=== PATIENT | female | born 1945 | race Caucasian/White ===

== ENCOUNTER 2022-05-02 11:32 | Outpatient (CLI) | payer MEDICARE, OTHER, SELFPAY ==
[2022-05-02 15:04] LABS: Chloride* 104 mmol/L (96-114); Potassium* 4.4 mmol/L (3.6-5.1); Sodium* 138 mmol/L (135-149)
[2022-05-02 15:07] LABS: Blood Urea Nitrogen* 14 mg/dL (7-30); Carbon Dioxide* 27 mmol/L (20-32); Cholesterol* 159 mg/dL (90-199); Creatinine* 0.6 mg/dL (0.5-1.5); Estimated Glomerular Filt Rate 94 ml/min; Glucose* 105 mg/dL (60-115)
[2022-05-02 15:08] LABS: Calcium* 9.4 mg/dL (8.4-10.6); HDL Cholesterol* 65 mg/dL (>=50); LDL Cholesterol Calculated 77 mg/dL (<100); Triglycerides* 86 mg/dL (40-149)
== END 2022-05-02 11:33 | disposition home or self-care (01) ==
LOC: NFLDREF 11:33
PROVIDERS: PCP Internal Medicine; Visit Provider Internal Medicine
DX: Z00.00 Encounter for general adult medical examination without abnormal findings (principal); E78.5 Hyperlipidemia, unspecified; Z13.9 Encounter for screening, unspecified
CPT/HCPCS: 80048; 80061

== ENCOUNTER 2023-06-05 10:49 | Outpatient (CLI) | payer MEDICARE, OTHER, SELFPAY ==
--- OUTSIDE RECORDS SUMMARY | 2023-06-12 10:29 | XMS_ITS | Continuity of Care Document ---
Author Name Unknown Organization [facility] Address [address] [place] [address] Phone Care Team Providers Care Dining Service Supervisor Name Role Phone Viri Carl MD Unavailable Unavailable Advance Directives Directive Yes / No Effective Date File Name No Information Encounters Encounter Description Practice Location Reason(s) For Visit Diagnoses Date Provider Providers Copied on Encounter [facility], [address], [place], [address], [place] tel:[phone] [facility], No Information 1 Siddhartha Meredith. [facility] [address], [place], [address], [place]. tel:[phone] Family History Family Member Type Diagnosis Age At Onset No Information Payers Payer name Insurance type Covered republican ID Authoriza tion(s) No Information Social History Type Description Quantity Date Captured Comments Sex Female Smoking Status No Information Chief Complaint And Reason For Visit No Information Reason For Referral Reason For Referral No Information History Of Present Illness Encounter Date Complaint History Of Prese nt Illness No Information Functional Status Date Functional Assessmen t No Information Instructions Date Instruction Additional Infor mation No Information Assessments Type Assessment Date No Information Patient Care Teams Name Effective Dates (start - stop) Status Members No Information
== END 2023-06-05 10:50 | disposition home or self-care (01) ==
LOC: NFLDREF 06-12 10:27
PROVIDERS: PCP Internal Medicine; Referring Provider Internal Medicine; Visit Provider Internal Medicine
DX: E78.5 Hyperlipidemia, unspecified (principal); Z13.1 Encounter for screening for diabetes mellitus
CPT/HCPCS: 80061; 82947

== ENCOUNTER 2024-05-20 10:56 | Outpatient (CLI) | payer MEDICARE, OTHER, SELFPAY ==
--- OUTSIDE RECORDS SUMMARY | 2024-05-24 12:26 | XMS_ITS | Encounter Summary ---
Author Organization [facility] Address [address] [place] [address] Care Team Providers Care Print Developer Automatic Name Role Phone Quintin Ferguson M.D. Primary Care Provider [phone] Reason for Referral * Outpatient (Routine) - Closed Specialty Diagnoses / Procedures Referred By Marianela villaseñor Referred To Contact Diagnoses Screening Mammogram Breast Cancer Procedures BI Breast Screening Bilateral with Tomosynthesis Quintin Ferguson M.D. [address] [place] [address] Phone: tel: fax: [facility] Referral ID Status Reason Start Date Expiration Date Visits Re quested Visits Authorized [id number] Closed 03/14/2024 03/14/2025 1 1 Reason for Visit * Outpatient (Routine) - Closed Specialty Diagnoses / Procedures Referred By Marianela villaseñor Referred To Contact Diagnoses Screening Mammogram Breast Cancer Procedures BI Breast Screening Bilateral with Tomosynthesis Quintin Ferguson M.D. [address] [place] [address] Phone: tel: fax: [facility] Referral ID Status Reason Start Date Expiration Date Visits Re quested Visits Authorized [id number] Closed 03/14/2024 03/14/2025 1 1 Encounter Details Date Type Department Care Team (Latest Contact Info) Description 04/04/2024 1:30 PM CDT - 04/04/2024 11:59 PM CDT Hospital Encounter Department of Radiology in [place], [place] [address] [facility] [address] Quintin Ferguson M.D. [address] [place] [address] Screening Mammogram Breast Cancer Discharge Disposition: Home or Self Care Social History Tobacco Use Types Packs/Day Years Used Date Smoking Tobacco: Never Smokeless Tobacco: Never Alcohol Use Standard Drinks/Week Comments No 0 (1 standard drink = 0.6 oz pur e alcohol) PHQ-2 Answer Date Recorded PHQ-2 Score 0 09/02/2019 Nutrition Answer Date Recorded Nutrition: EVOO Fat Source Unknown 09/13 Nutrition: Servings of Fruits/Vegetables per Day Not on file 09/13/2020 Dental Answer Date Recorded Dental: Regular Dentist Unknown 09/13/19 21 Comments No Sex and Gender Information Value Date Recorded Sex Assigned at Not on file 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 Do not exceed 4000 mg or 4 g in 24 hours.). 30 tablet 01/27/2020 atorvastatin (LIPITOR) 10 mg tablet TAKE 1 TABLET BY MOUTH DAILY 90 tablet 3 11/26/2021 coenzyme Q10 (CO Q-10) 200 mg capsule Take 200 mg by mouth daily. diclofenac sodium (VOLTAREN) 1 % gel Apply 2 g topically 2 (two) times a day as needed (knee pain). 11/15/2019 DOCOSAHEXANOIC ACID/EPA (FISH OIL ORAL) Take 1 capsule by mouth daily. 10/12/2009 ERGOCALCIFEROL, VITAMIN D2, ORAL Take 1 tablet by mouth daily. 10/12/2009 latanoprost (XALATAN) 0.005 % ophthalmic solution Administer 1 drop into both eyes at bedtime. 12/17/2021 naproxen sodium (ALEVE/ANAPROX) 220 mg tablet Take 220 mg by mouth 2 (two) times a day with meals. UNABLE TO FIND Take 2 capsules by mouth 3 (three) times a day. Fruits and veggies capsule. 06/09/2023 UNABLE TO FIND Take by mouth daily. Prevagen 06/09/2023 vitamin E 45 mg (100 Unit) capsule Take 45 mg by mouth daily. wheat dextrin (BENEFIBER HEALTHY SHAPE ORAL) Take by mouth. 3 times daily documented as of this encounter Plan of Treatment Not on file documented as of this encounter Procedures Procedure Name Priority Date/Time Associated Diagnosis Comments BI BREAST SCREENING BILATERAL WITH TOMOSYNTHESIS RAD - Routine (most inpatients and all outpatients) 04/04/2024 1:45 PM CDT Screening Mammogram Breast Cancer documented in this encounter Results * BI Breast Screening Bilateral with Tomosynthesis (04/04/2024 1:45 PM CDT) Anatomical Region Laterality Modality Breast, Breast Imaging RST L OS, Breast Imaging ARZ LOS, Breast Imaging FLA LOS Bilateral Mammography Impressions 04/04/2024 2:36 PM CDT Negative. RECOMMENDATION: ??Annual Screening Mammogram ASSESSMENT: ??BI-RADS: 1: Negative. Narrative 04/04/2024 2:36 PM CDT EXAM: ??BI BREAST SCREENING BILATERAL WITH TOMOSYNTHESIS Current study was evaluated with a Computer Aided Detection (CAD) system. INDICATION: ??Screening mammogram. COMPARISON: ??Prior exam(s) were available and reviewed for comparison. DENSITY: ??c. The breast(s) are heterogeneously dense, which may obscure small masses. FINDINGS: ??No mammographic findings of malignancy. Procedure Note Bruce Fernández M.D. - 04/04/2024 EXAM: BI BREAST SCREENING BILATERAL WITH TOMOSYNTHESIS Current study was evaluated with a Computer Aided Detection (CAD) system. INDICATION: Screening mammogram. COMPARISON: Prior exam(s) were available and reviewed for comparison. DENSITY: c. The breast(s) are heterogeneously dense, which may obscuresmall masses. FINDINGS: No mammographic findings of malignancy. IMPRESSION: Negative. RECOMMENDATION: Annual Screening Mammogram ASSESSMENT: BI-RADS: 1: Negative. us Quintin Ferguson M.D. IMG BI PROCEDURES Final Resu lt documented in this encounter Visit Diagnoses Diagnosis Screening Mammogram Breast Cancer documented in this encounter Care Teams Print Developer Automatic Relationship Specialty Start Date End Date Quintin Ferguson M.D. [address] [place] [phone] PCP - General 08/30/20 documented as of this encounter
--- OUTSIDE RECORDS SUMMARY | 2024-05-24 12:26 | XMS_ITS | Encounter Summary ---
Author Organization [facility] Address [address] [place] [address] Care Team Providers Care Recreation Facility Manager Name Role Phone Quintin Ferguson M.D. Primary Care Provider [phone] Reason for Referral * Outpatient (Routine) - Authorized Specialty Diagnoses / Procedures Referred By Contac t Referred To Contact Quintin Ferguson M.D. [address] [place] [address] Phone: tel: fax: [facility] Region Referral ID Status Reason Start Date Expiration Date V isits Requested Visits Authorized [id number] Authorized 05/24/2024 11/23/2025 1 1 Scheduling Instructions Nurse AWV Do not schedule prior to due date to ensure insurance coverage Visit: Medicare Annual Wellness due on 06/05/2024. OFF MAN Encounter Details Date Type Department Care Team (Late st Contact Info) Description 05/24/2024 Orders Only [facility] PCP [facility] MNT Quintin Ferguson M.D. 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 [address] [place] [phone] PCP - General 08/30/20 documented as of this encounter
--- OUTSIDE RECORDS SUMMARY | 2024-05-24 12:26 | XMS_ITS | Encounter Summary ---
Author Organization [facility] Address [address] [place] [address] Care Team Providers Care Full Stack Java Developer Name Role Phone Quintin Ferguson M.D. Primary Care Provider Encounter Details Date Type Department Care Team (Late st Contact Info) Description 04/04/2024 Clinical Communication Department of Family Medicine, [facility], in [place], [place] [address] [place] [address] Quintin Ferguson M.D. 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 - 04/04/2024 3:39 PM CDT 2nd letter mailed to patient to call and schedule colonoscopy documented in this encounter Plan of Treatment Not on file documented as of this encounter Visit Diagnoses Not on filedocumented in this encounter Care Teams Full Stack Java Developer Relationship Specialty Start Date End Date Quintin Ferguson M.D. [address] [place] [address] [place] [address] PCP - General 08/30/20 documented as of this encounter
--- OUTSIDE RECORDS SUMMARY | 2024-05-24 12:26 | XMS_ITS | Encounter Summary ---
Author Organization [facility] Address [address] [place] [address] Care Team Providers Care Corporate Compliance Officer Name Role Phone Quintin Ferguson M.D. Primary Care Provider Reason for Visit * Reason Onset Date Comments Colonoscopy 02/15/2024 Encounter Details Date Type Department Care Team (Late st Contact Info) Description 02/15/2024 Clinical Communication Department of Family Medicine, [facility], in [place], [place] [address] [place] [address] Quintin Ferguson M.D. 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 [address] [facility] [place], [place] [address] PCP - General 08/30/20 documented as of this encounter
--- OUTSIDE RECORDS SUMMARY | 2024-05-24 12:26 | XMS_ITS | Referral Summary ---
Author Organization [facility] Address [address] [place] [address] Care Team Providers Care Mercerizer Machine Operator Name Role Phone Quintin Ferguson M.D. Primary Care Provider Source Comments Patient records contain information from all sites at [facility]. For routine questions regarding patient records, call [phone] during business hours, M-F 8:00 AM - 5:00 PM Central Time. Record requests for emergency care only can be directed to [phone] at any time.[facility] Encounters Date Type Department Care Team Description 05/24/2024 Orders Only [facility] M.[facility]. 04/04/2024 Clinical Communication Department of Family Medicine, [facility], in [address] [address] Quintin Ferguson M.D. 04/04/2024 1:30 PM CDT - 04/04/2024 11:59 PM CDT Hospital Encounter Department of Radiology in [address] [address] Quintin Ferguson M.D. Screening Mammogram Breast Cancer Discharge Disposition: Home or Self Care from Last 3 Months Allergies Active Allergy Reactions Criticality Noted Date Comments Codeine GI intolerance 10/12/2009 Cerner listed no reactions Medications ERGOCALCIFEROL, VITAMIN D2, ORAL Take 1 tablet by mouth daily. 0 Active DOCOSAHEXANOIC ACID/EPA (FISH OIL ORAL) Take 1 capsule by mouth daily. 0 Active diclofenac sodium (VOLTAREN) 1 % gel Apply 2 g topically 2 (two) times a day as needed (knee pain). 0 Active acetaminophen (TYLENOL) 500 mg tablet Take 2 tablets (1,000 mg total) by mouth every 6 (six) hours as needed for pain (alternate with ibuprofen every 3 hours. Do not exceed 4000 mg or 4 g in 24 hours.). 30 tablet 0 Active wheat dextrin (BENEFIBER HEALTHY SHAPE ORAL) Take by mouth. 3 times daily Active atorvastatin (LIPITOR) 10 mg tablet TAKE 1 TABLET BY MOUTH DAILY 90 tablet 3 2 Active latanoprost (XALATAN) 0.005 % ophthalmic solution Administer 1 drop into both eyes at bedtime. 2 Active naproxen sodium (ALEVE/ANAPROX) 220 mg tablet Take 220 mg by mouth 2 (two) times a day with meals. Active coenzyme Q10 (CO Q-10) 200 mg capsule Take 200 mg by mouth daily. Active UNABLE TO FIND Take 2 capsules by mouth 3 (three) times a day. Fruits and veggies capsule. 3 Active UNABLE TO FIND Take by mouth daily. Prevagen 3 Active vitamin E 45 mg (100 Unit) capsule Take 45 mg by mouth daily. Active Active Problems Problem Noted Date Diagnosed Date Hypercholesterolemia 03/08/2020 History Of Falling 01/25/2020 Preanesthetic Medical Exam 01/25/2020 Overview (01/25/2020): Preoperative exam Assessment & Plan (01/25/2020 2:03 PM CDT): She has all of her preliminary blood work an EKG completed. She is here just for physical exam. She will report to [facility] tomorrow at the assigned time but she will find out the morning. She knows her instructions on be NPO. Normal exam today. Overactive Bladder 10/31/2019 Overview (10/31/2019): Diagnosed with urinary tract infection June 2019, which was treated. She has experienced overactive bladder symptoms since that time. Also noticed worsening of her cystocele since that time. Currently managing with size 3 ring pessary with support. 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 TRQ score of 9. Resolved Problems Problem Noted Date Diagnosed Date Resolved Date Cystocele 10/31/2019 01/26/2020 Overview (10/31/2019): Plans to proceed with surgical management, but due to COVID-19, elective surgeries have been deferred. Using size 3 ring pessary with support during the interim. Managing independently. Assessment & Plan (01/25/2020 2:02 PM CDT): She will have a cystocele repair tomorrow at [facility]. She is here for for preop. She is COVID negative. She is had all of her preoperative Education and instructions. She will call on the morning to find out what time she needs to be at the hospital. Assessment & Plan (10/31/2019 12:30 PM CDT): Patient was fit with a size 3 ring pessary with support today. She was able to demonstrate insertion and cleaning of the device without difficulty. She was not able to remove the device independently, and will therefore take it home and apply dental lost to the device, to assist with removal. She plans to manage independently until she is able to undergo surgical intervention for management of her prolapse. She will contact me if she has any concerns or questions. Follow-up as needed. Deficiency Estrogen Post Menopausal 11/14/2013 10/31/2019 Pain Knee 04/12/2012 10/31/2019 Immunizations Name Administration Dates Next Due HZV (ZOSTAVAX) 11/11/2012 Influenza high dose QV(65 ye ars or older) (PF) 05/26/2023,05/16/2022,05/20/2021,2019 Influenza, Seasonal, Injectable 05/09/2014,04/17 Influenza, Unspecified 04/04/2009,04/17/2008 PCV13 12/21/2014 PPSV23 12/10/2012 RSV: respiratory syncytial v irus (AREXVY) recombinant vaccine 06/09/2023 RZV (SHINGRIX) 12/17/2018,10/04/2018 SARS-COV-2 (COVID-19) - PFIZ ER (Discontinued)(12 years or older) 05/20/2021,10/02/2020,09/11/2020 Tdap 06/09/2023,12/12/2011,01/01/2006 influenza trivalent high dos e (HD)(PF) 04/29/2019,05/14/2018,04/23/2017,2015,05/02/2015 influenza trivalent vaccine (6 months and older)(PF) 05/17/2012,05/16/2011,05/16/2010,2008 Social History Tobacco Use Types Packs/Day Years [...] on file 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 Gender Identity Not on file Sexual Orientation Not on file Last Filed Vital Signs Vital Sign Reading Time Taken Comments Blood Pressure 113/70 06/25/2023 1:42 PM DOOR REPAIRER BUS Pulse 65 06/25/2023 1:42 PM DOOR REPAIRER BUS Temperature 36.3 ??C (97.3 ??F) 06/25/2023 1:42 PM CS T Respiratory Rate 18 06/25/2023 1:42 PM DOOR REPAIRER BUS Oxygen Saturation 98% 01/27/2020 8:30 AM CDT Inhaled Oxygen Concentration - - Weight 59.4 kg (130 lb 13.5 oz) 06/25/2023 1:42 PM DOOR REPAIRER BUS Height 160.5 cm (5' 3.19) 06/25/2023 1:42 PM CS T Body Mass Index 23.04 06/25/2023 1:42 PM DOOR REPAIRER BUS Plan of Treatment Not on file Procedures Procedure Name Priority Date/Time Associated Diagnosis Comments BI BREAST SCREENING BILATERAL WITH TOMOSYNTHESIS RAD - Routine (most inpatients and all outpatients) 04/04/2024 1:45 PM CDT Screening Mammogram Breast Cancer from Last 3 Months Results * BI Breast Screening Bilateral with [...] Annual Screening Mammogram ASSESSMENT: BI-RADS: 1: Negative. Quintin Ferguson M.D. IMG BI PROCEDURES Final Resu lt from Last 3 Months [facility] [place] [address] Advance Directives For more information, please contact: [phone] * Full Code (Latest Code Status on File) Date Activated Date Inactivated Comments 01/26/2020 12:31 PM 01/27/2020 12:58 PM Question Answer Comments Full Code: Discussed Care Teams Mercerizer Machine Operator Relationship Specialty Start Date End Date Quintin Ferguson M.D. [address] [place] [address] [place] [phone] PCP - General 08/30/20
--- OUTSIDE RECORDS SUMMARY | 2024-05-24 12:26 | XMS_ITS ---
Author Organization [facility] Address [address] [place] [address] Care Team Providers Care Assembling Motor Builder Name Role Phone Unavailable Unavailable Unavailable Surgery Details Not on file Complications Check Surgery Details section. Procedure Estimated Blood Loss Check Surgery Details section. Procedure Findings Check Surgery Details section. Procedure Specimens Taken Check Surgery Details section.
--- OUTSIDE RECORDS SUMMARY | 2024-05-24 12:26 | XMS_ITS | Clinical Summary ---
Author Organization [facility] Address [address] [place] [address] Care Team Providers Care Senior Tech Manufacturing Engineering Name Role Phone Quintin Ferguson M.D. Primary Care Provider Source Comments Patient records contain information from all sites at [facility]. For routine questions regarding patient records, call [phone] during business hours, M-F 8:00 AM - 5:00 PM Central Time. Record requests for emergency care only can be directed to [phone] at any time.[facility] Allergies Active Allergy Reactions Criticality Noted Date [...] for physical exam. She will report to [facility] tomorrow at the assigned time but she [...] will have a cystocele repair tomorrow at [facility]. She is here for for preop. She [...] Menopausal 11/14/2013 10/31/2019 Pain Knee 04/12/2012 10/31/2019 Encounters Date Type Department Care Team Description 05/24/2024 Orders Only [facility] PCP [facility] Quintin Ferguson M.D. 04/04/2024 1:30 PM CDT - 04/04/2024 11:59 PM CDT Hospital Encounter Department of Radiology in [place], [place] [address] [place] [address] Quintin Ferguson M.D. Screening Mammogram Breast Cancer Discharge Disposition: Home or Self Care 04/04/2024 Clinical Communication Department of Family Medicine, [facility], in [place], [place] [address] [place] [address] Quintin Ferguson M.D. 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 Gender Identity Not on file Sexual Orientation Not on file Last Filed Vital Signs Vital Sign Reading Time Taken Comments Blood Pressure 113/70 06/25/2023 1:42 PM FIRE PREVENTION FORESTER Pulse 65 06/25/2023 1:42 PM FIRE PREVENTION FORESTER Temperature 36.3 ??C (97.3 ??F) 06/25/2023 1:42 PM CS T Respiratory Rate 18 06/25/2023 1:42 PM FIRE PREVENTION FORESTER Oxygen Saturation 98% 01/27/2020 8:30 AM CDT Inhaled Oxygen Concentration - - Weight 59.4 kg (130 lb 13.5 oz) 06/25/2023 1:42 PM FIRE PREVENTION FORESTER Height 160.5 cm (5' 3.19) 06/25/2023 1:42 PM CS T Body Mass Index 23.04 06/25/2023 1:42 PM FIRE PREVENTION FORESTER Plan of Treatment Health Maintenance Due Date Last Done Comments Depression Screening (Annual PHQ-2) 07/20/2023 Fall Risk Screen (Annual) 07/20/2023 COVID-19 Vaccine ( season) 2024 05/26/2023, 05/16/2022, 05/20/2021, Additional history exists Influenza Vaccine (#1) 2024 , 05/16/2022, 05/20/2021, Additional history exists Visit: Medicare Annual Wellness 06/05/2024 06/04/2023 (Performed elsewhere) Visit: Annual, age 65+ (or Medicare and <65) 06/25/2024 06/25/2023 DTaP,Tdap,and Td Vaccines (4 - Td or Tdap) 06/09/2033 06/09/2023, 12/12/2011, 01/01/2006 Pneumococcal vaccine (65+ years) Completed 12/21/2014, 12/10/2012 Zoster Vaccines Completed 12/17/2018, 09/17, 11/11/2012 Colonoscopy Discontinued 03/16/2019 (Perf ormed elsewhere), 03/10/2016 Colorectal Cancer Surveillance Discontinued RSV vaccine - (32-36 weeks) or 60+ years Completed 06/09/2023 Mammogram Discontinued 04/04/2024, 03/20, 03/11/2022, Additional history exists CT Colonography Discontinued Cologuard Discontinued IPV Vaccines Aged Out No longer eligi ble based on patient's age to complete this topic Procedures Procedure Name Priority Date/Time Associated Diagnosis [...] lt from Last 3 Months Insurance MEDICARE [facility] BENEFIT [place] [id number] Advance Directives For more information, please contact: [phone] * Full Code (Latest Code Status on File) Date Activated Date Inactivated Comments 01/26/2020 12:31 PM 01/27/2020 12:58 PM Question Answer Comments Full Code: Discussed Care Teams Senior Tech Manufacturing Engineering Relationship Specialty Start Date End Date Quintin Ferguson M.D. [address] [place] [address] [place] [phone] PCP - General 08/30/20
--- OUTSIDE RECORDS SUMMARY | 2024-05-24 12:26 | XMS_ITS | Continuity of Care Document ---
Author Organization [facility] Address [address] [place] [address] Phone Care Team Providers Care Mortgage Closing Clerk Name Role Phone Viri Carl MD Unavailable Unavailable Advance Directives Directive Yes / No Effective Date File Name No Information Encounters Encounter Description Practice Location Reason(s) For Visit Diagnoses Date Provider Providers Copied on Encounter [facility], [address], [place], [address], [place] tel:[phone] [facility], No Information 1 Siddhartha Meredith. [facility] [address], [place], [address], [place]. tel:[phone] Family History Family Member Type Diagnosis Age At Onset No Information Payers Payer name Insurance type Covered libertarian ID Authoriza tion(s) No Information Social History [...]
--- OUTSIDE RECORDS SUMMARY | 2024-05-24 12:26 | XMS_ITS | Clinical Summary ---
Author Organization [facility] Address [place], [place] [address] Care Team Providers Care Resin Coater Name Role Phone Yoana Edwards AuD Unavailable [phone] Sheryl Holman MD Primary Care Provider [phone] Allergies Active Allergy Reactions Criticality Noted Date Comments Codeine *Unknown 03/06/2016 Medications Medication Sig Dispensed Refills Start Date End Date Status estradiol 0.025 mg/24 hr (CLIMARA) 0.025 mg/24 hr patch Apply 1 Patch on dry, clean, hairless skin once weekly. 0 03/27/2011 Active progesterone micronized (PROMETRIUM) 100 mg capsule Take 1 capsule by mouth at bedtime. 0 03/27/2011 Active ERGOCALCIFEROL, VITAMIN D2, ORAL Take by mouth. Acti ve DOCOSAHEXANOIC ACID/EPA (FISH OIL ORAL) Take by mouth. Active Active Problems Problem Noted Date Diagnosed Date Knee pain 04/12/2012 Sacroiliac joint osteoarthritis 06/04/2011 Lumbar facet arthropathy 06/04/2011 Degeneration of lumbar or lumbosacral interverte bral disc 06/04/2011 Sensorineural hearing loss, bilateral 02/26/2010 Subjective tinnitus 02/26/2010 Overview (02/26/2010): has received treatment using a sound generator. TRQ score of 9. Immunizations Name Administration Dates Next Due Influenza, IIV3 (Age >=3 years) 04/17/2008,07/05 Tdap 12/12/2011 Family History Medical History Relation Name Comments Arthritis Mother Arthritis Sister Relation Name Status Comments Mother Sister Social History Tobacco Use Types Packs/Day Years Used Date Smoking Tobacco: Never Smokeless Tobacco: Never Alcohol Use Standard Drinks/Week Comments No 0 (1 standard drink = 0.6 oz pur e alcohol) Sex and Gender Information Value Date Recorded Sex Assigned at Not on file Gender Identity Not on file Sexual Orientation Not on file Obstetrics History Last Filed Vital Signs Vital Sign Reading Time Taken Comments Blood Pressure 140/63 03/16/2019 8:30 AM CDT Pulse 66 03/16/2019 8:30 AM CDT Temperature 35.9 ??C (96.6 ??F) 03/16/2019 8:30 AM CD T Respiratory Rate 16 03/16/2019 8:30 AM CDT Oxygen Saturation 98% 03/16/2019 8:30 AM CDT Inhaled Oxygen Concentration - - Weight 66 kg (145 lb 9.6 oz) 04/12/2012 6:42 PM CDT Height - - Body Mass Index - - Plan of Treatment Health Maintenance Due Date Last Done Comments Depression screening for age 12+ 1959 BMI (ht and wt on same day) for age 18+ 09/18/1965 Hepatitis C screening for ag e 18-79 09/18/1965 Zoster (shingles) series for age 50+ (1 of 2) 09/18/1997 DEXA/DXA scan for age 65+ 09/18/2012 Medicare Wellness for age 65+ 09/18/2012 Pneumococcal series for age 65+ (1 of 1 - PCV) 09/18/2012 Tetanus booster 12/11/2021 12/12/2011 RSV vaccine for adults or (1 - 1-dose 75+ series) 09/18/2022 COVID-19 vaccine series ( season) 2024 05/26/2023, 05/16/2022, 05/20/2021, Additional history exists Influenza for age 65+ 03/20/2024 04/17/2008, 004 Tdap Completed 12/12/2011 Advance Directives * Full Code (Latest Code Status on File) Date Activated Date Inactivated Comments 03/10/2016 9:15 AM 03/10/2016 2:12 PM Care Teams Resin Coater Relationship Specialty Start Date End Date Sheryl Holman MD [address] [place] [address] PCP - General Internal Medicine 09/21/18 Yoana Edwards AuD Audiology 04/17/08
== END 2024-05-20 10:57 | disposition home or self-care (01) ==
PROVIDERS: PCP Internal Medicine; Referring Provider Internal Medicine; Visit Provider Internal Medicine
DX: E78.5 Hyperlipidemia, unspecified (principal)
CPT/HCPCS: 80061

== ENCOUNTER 2024-06-09 12:32 | Outpatient (CLI) | payer MEDICARE, OTHER, SELFPAY ==
--- OUTSIDE RECORDS SUMMARY | 2024-06-09 12:35 | XMS_ITS | Clinical Summary ---
Author Organization [facility] Address [place], [place] [address] Care Team Providers Care Delicatessen Manager Name Role Phone Yoana Edwards AuD Unavailable [phone] Sheryl Holman MD Primary Care Provider [phone] Allergies Active Allergy Reactions Criticality Noted Date [...] a sound generator. TRQ score of 9. Encounters Date Type Department Care Team Description 05/31/2024 10:30 AM OVEN OPERATOR AUTOMATIC Office Visit [facility] [address] [place] [address] Radha Arboleda AuD Hearing Aid ([place] check) 05/31/2024 Travel from Last 3 Months Immunizations Name Administration Dates Next Due Influenza, [...] 66 03/16/2019 8:30 AM CDT Temperature 35.9 C (96.6 F) 03/16/2019 8:30 AM CDT Respiratory Rate 16 03/16/2019 8:30 AM CDT [...] or (1 - 1-dose 75+ series) 09/18/2022 Influenza for age 65+ 03/20/2024 04/17/2008, 004 Tdap Completed 12/12/2011 COVID-19 vaccine series Completed 05/20/20 24, 05/26/2023, 05/16/2022, Additional history exists Advance Directives * Full Code (Latest Code Status on File) Date Activated Date Inactivated Comments 03/10/2016 9:15 AM 03/10/2016 2:12 PM Care Teams Delicatessen Manager Relationship Specialty Start Date End Date Sheryl Holman MD [address] [place] [address] PCP - General Internal Medicine 09/21/18 Yoana Edwards AuD Audiology 04/17/08
--- OUTSIDE RECORDS SUMMARY | 2024-06-09 12:35 | XMS_ITS | Clinical Summary ---
Author Organization [facility] Address [address] [place] [address] Care Team Providers Care Batch Plant Operator Name Role Phone Quintin Ferguson M.D. Primary Care Provider Source Comments Patient records contain information from all sites at [facility]. For routine questions regarding patient records, call [phone] during business hours, M-F 8:00 AM - 5:00 PM Central Time. Record requests for emergency care only can be directed to [phone] at any time.[facility] Allergies Active Allergy Reactions Criticality Noted Date [...] for physical exam. She will report to [facility] tomorrow at the assigned time [...] will have a cystocele repair tomorrow at [facility]. She is here for for preop. She [...] Orders Only [facility] P[facility] Quintin Ferguson M.D. 04/04/2024 1:30 PM CDT - 04/04/2024 11:59 PM CDT Hospital Encounter Department of Radiology in [place], [place] [address] [place] [address] Quintin Ferguson M.D. Screening Mammogram Breast Cancer Discharge Disposition: Home or Self Care 04/04/2024 Clinical Communication Department of Family Medicine, [facility], in [place], [place] [address] [place] [address] Quintin Ferguson M.D. 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 Gender Identity Not on file Sexual Orientation Not on file Last Filed Vital Signs Vital Sign Reading Time Taken Comments Blood Pressure 113/70 06/25/2023 1:42 PM BULKHEAD CARPENTER Pulse 65 06/25/2023 1:42 PM BULKHEAD CARPENTER Temperature 36.3 C (97.3 F) 06/25/2023 1:42 PM BULKHEAD CARPENTER Respiratory Rate 18 06/25/2023 1:42 PM BULKHEAD CARPENTER Oxygen Saturation 98% 01/27/2020 8:30 AM CDT Inhaled Oxygen Concentration - - Weight 59.4 kg (130 lb 13.5 oz) 06/25/2023 1:42 PM BULKHEAD CARPENTER Height 160.5 cm (5' 3.19) 06/25/2023 1:42 PM CS T Body Mass Index 23.04 06/25/2023 1:42 PM BULKHEAD CARPENTER Plan of Treatment Health Maintenance Due Date [...] Impressions 04/04/2024 2:36 PM CDT Negative. RECOMMENDATION: Annual Screening Mammogram ASSESSMENT: BI-RADS: 1: Negative. Narrative 04/04/2024 2:36 PM CDT EXAM: BI BREAST SCREENING BILATERAL WITH TOMOSYNTHESIS Current study was evaluated with a Computer Aided Detection (CAD) system. INDICATION: Screening mammogram. COMPARISON: Prior exam(s) were available and reviewed for comparison. DENSITY: c. The breast(s) are heterogeneously dense, which may obscure small masses. FINDINGS: No mammographic findings of malignancy. Procedure Note Bruce [...] lt from Last 3 Months Insurance MEDICARE [employer] [place] [id number] Advance Directives For more information, please contact: [phone] * Full Code (Latest Code Status on File) Date Activated Date Inactivated Comments 01/26/2020 12:31 PM 01/27/2020 12:58 PM Question Answer Comments Full Code: Discussed Care Teams Batch Plant Operator Relationship Specialty Start Date End Date Quintin Ferguson M.D. [address] [place] [address] [place] [address] PCP - General 08/30/20
--- OUTSIDE RECORDS SUMMARY | 2024-06-09 12:35 | XMS_ITS ---
Author Organization [facility] Address [address] [place] [address] Care Team Providers Care Travel Ticketing Reviewer Name Role Phone Unavailable Unavailable Unavailable Surgery Details Not on file Complications Check Surgery Details section. Procedure Estimated Blood Loss Check Surgery Details section. Procedure Findings Check Surgery Details section. Procedure Specimens Taken Check Surgery Details section.
--- OUTSIDE RECORDS SUMMARY | 2024-06-09 12:35 | XMS_ITS | Encounter Summary ---
Author Organization [facility] Address [address] [place] [address] Care Team Providers Care Balance Staff Staker Name Role Phone Quintin Ferguson M.D. Primary Care Provider [phone] Encounter Details Date Type Department Care Team (Late st Contact Info) Description 04/04/2024 Clinical Communication Department of Family Medicine, [facility], in [place], [place] [address] [place] [address] Quintin Ferguson M.D. 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 [address] [place] [address] [place] [address] PCP - General 08/30/20 documented as of this encounter
--- OUTSIDE RECORDS SUMMARY | 2024-06-09 12:35 | XMS_ITS | Encounter Summary ---
Author Organization [facility] Address [address] [place] [address] Care Team Providers Care Tool Straightener Name Role Phone Quintin Ferguson M.D. Primary Care Provider [phone] Reason for Referral * Outpatient (Routine) - Closed Specialty Diagnoses / Procedures Referred By Marianela villaseñor Referred To Contact Diagnoses Screening Mammogram Breast Cancer Procedures BI Breast Screening Bilateral with Tomosynthesis Quintin Ferguson M.D. [address] [place] [address] Phone: tel: fax: [facility] Referral ID Status Reason Start Date Expiration Date Visits Re quested Visits Authorized [id number] Closed 03/14/2024 03/14/2025 1 1 Reason for Visit * Outpatient (Routine) - Closed Specialty Diagnoses / Procedures Referred By Marianela villaseñor Referred To Contact Diagnoses Screening Mammogram Breast Cancer Procedures BI Breast Screening Bilateral with Tomosynthesis Quintin Ferguson M.D. [address] [place] [address] Phone: tel: fax: [facility] Referral ID Status Reason Start Date Expiration Date Visits Re quested Visits Authorized [id number] Closed 03/14/2024 03/14/2025 1 1 Encounter Details Date Type Department Care Team (Latest Contact Info) Description 04/04/2024 1:30 PM CDT - 04/04/2024 11:59 PM CDT Hospital Encounter Department of Radiology in [place], [place] [address] [facility] [place] [address] Quintin Ferguson M.D. 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 [address] [place] [phone] PCP - General 08/30/20 documented as of this encounter
--- OUTSIDE RECORDS SUMMARY | 2024-06-09 12:35 | XMS_ITS | Continuity of Care Document ---
Author Organization [facility] Address [address] [place] [address] Phone Care Team Providers Care Health Club Manager Name Role Phone Viri Carl MD Unavailable Unavailable Advance Directives Directive Yes / No Effective Date File Name No Information Encounters Encounter Description Practice Location Reason(s) For Visit Diagnoses Date Provider Providers Copied on Encounter [facility], [address], [place], [address], [place] tel:[phone] [facility], No Information 1 Siddhartha Meredith. [facility] [address], [place], [address], [place]. tel:[phone] Family History Family Member Type Diagnosis Age [...]
--- OUTSIDE RECORDS SUMMARY | 2024-06-09 12:35 | XMS_ITS | Encounter Summary ---
Author Organization [facility] Address [address] [place] [address] Care Team Providers Care Care Manager Name Role Phone Quintin Ferguson M.D. Primary Care Provider [phone] Reason for Referral * Outpatient (Routine) - Authorized Specialty Diagnoses / Procedures Referred By Contac t Referred To Contact Quintin Ferguson M.D. [address] [place] [address] Phone: tel: fax: [facility] Region Referral ID Status Reason Start Date Expiration Date V isits Requested Visits Authorized [id number] Authorized 05/24/2024 11/23/2025 1 1 Scheduling Instructions Nurse AWV Do not schedule prior to due date to ensure insurance coverage Visit: Medicare Annual Wellness due on 06/05/2024. EL AUTOMOTIVE TECHNICIAN Encounter Details Date Type Department Care Team (Late st Contact Info) Description 05/24/[address] [facility] PCP [facility] Quintin Ferguson M.D. [address] [place] [address] Social History Tobacco Use Types [...] on file Legal Sex Female 9:24 AM DIESEL AUTOMOTIVE TECHNICIAN Gender Identity Not on file Sexual Orientation Not on file documented as of this encounter Plan of Treatment Scheduled Referrals Name Type Priority Associated Diagnoses Orde r Schedule Primary Care nurse visit (clinic) - [facility] Region; Medicare Annual Wellness Outpatient Referral Routine Expected: 06/21/2024, Expires: 11/20/2024 documented as of this encounter Visit Diagnoses Not on filedocumented in this encounter Care Teams Care Manager Relationship Specialty Start Date End Date Quintin Ferguson M.D. [address] [place] [phone] PCP - General 08/30/20 documented as of this encounter
--- OUTSIDE RECORDS SUMMARY | 2024-06-09 12:35 | XMS_ITS | Referral Summary ---
Author Organization [facility] Address [address] [place] [address] Care Team Providers Care Press Loader Name Role Phone Quintin Fergsuon M.D. Primary Care Provider Source Comments Patient records contain information from all sites at [facility]. For routine questions regarding patient records, call [phone] during business hours, M-F 8:00 AM - 5:00 PM Central Time. Record requests for emergency care only can be directed to [phone] at any time[address] Encounters Date Type Department Care Team Description 05/24/2024 Orders Only [facility] Quint[facility] M.D. 04/04/2024 Clinical Communication Department of Family Medicine, [facility], in [address] [address] Quintin Ferguson M.D. 04/04/2024 1:30 PM CDT - 04/04/2024 11:59 PM CDT Hospital Encounter Department of Radiology in [address] [address] Quintin Ferguson M.D. Screening Mammogram Breast Cancer [...] will have a cystocele repair tomorrow at [facility]. She is here for for preop. She [...] on file Legal Sex Female 9:24 AM SPECIAL NEEDS TEACHER Gender Identity Not on file Sexual Orientation Not on file Last Filed Vital Signs Vital Sign Reading Time Taken Comments Blood Pressure 113/70 06/25/2023 1:42 PM SPECIAL NEEDS TEACHER Pulse 65 06/25/2023 1:42 PM SPECIAL NEEDS TEACHER Temperature 36.3 C (97.3 F) 06/25/2023 1:42 PM SPECIAL NEEDS TEACHER Respiratory Rate 18 06/25/2023 1:42 PM SPECIAL NEEDS TEACHER Oxygen Saturation 98% 01/27/2020 8:30 AM CDT Inhaled Oxygen Concentration - - Weight 59.4 kg (130 lb 13.5 oz) 06/25/2023 1:42 PM SPECIAL NEEDS TEACHER Height 160.5 cm (5' 3.19) 06/25/2023 1:42 PM CS T Body Mass Index 23.04 06/25/2023 1:42 PM SPECIAL NEEDS TEACHER Plan of Treatment Not on file Procedures [...] lt from Last 3 Months Insurance [facility] Advance Directives For more information, please contact: [phone] * Full Code (Latest Code Status on File) Date Activated Date Inactivated Comments 01/26/2020 12:31 PM 01/27/2020 12:58 PM Question Answer Comments Full Code: Discussed Care Teams Press Loader Relationship Specialty Start Date End Date Quintin Ferguson M.D. [address] [place] [address] [place] Jewell [phone] PCP - General 08/30/20
--- NOTE | 2024-06-09 13:39 | W.ANESCHARGE ---
Anesthesia Charges Start Date/Time Anesthesia Start Date: 06/09/24 Anesthesia Start Time: 13:16 Stop Date/Time Anesthesia Stop Date: 06/09/24 Anesthesia Stop Time: 13:37 Summary Extremes of Age - Over 70 or under 1: MDA
--- NOTE | 2024-06-09 13:40 | W.ANESCHARGE ---
Anesthesia Charges Start Date/Time Anesthesia Start Date: 06/09/24 Anesthesia Start Time: 13:16 Stop Date/Time Anesthesia Stop Date: 06/09/24 Anesthesia Stop Time: 13:37
== END 2024-06-09 12:33 | disposition home or self-care (01) ==
LOC: OP CLINIC 12:33
PROVIDERS: PCP Internal Medicine; Visit Provider Internal Medicine
DX: Z12.11 Encounter for screening for malignant neoplasm of colon (principal); K64.8 Other hemorrhoids; K57.30 Diverticulosis of large intestine without perforation or abscess without bleeding; Z80.0 Family history of malignant neoplasm of digestive organs
CPT/HCPCS: 00812; 45378; 99100; J2704

== ENCOUNTER 2025-06-02 10:00 | Outpatient (CLI) | payer MEDICARE, OTHER, SELFPAY | END 2025-06-02 10:01 | disposition home or self-care (01) | LOC: NFLDREF 06-15 16:19 | PROVIDERS: PCP Internal Medicine; Referring Provider Internal Medicine; Visit Provider Internal Medicine | DX: E78.00 Pure hypercholesterolemia, unspecified (principal) | CPT/HCPCS: 80061 ==